=== PATIENT | male | born 1970 | race Caucasian/White ===

== ENCOUNTER 2020-12-18 11:15 | Day surgery (SDC) | payer MEDICAID ==
[2020-12-17 10:30] LABS: COVID AG,FIA SOURCE NASAL SWAB
[~2020-12-18 11:15] MED LIST: ATOR10TA69 PO; BACITRACIN 50,000 UNITS/VIAL ONE; BUPIVACAINE HCL/PF 0.25% 30 ML VIAL ONE; CefTRIAXone SODIUM 2 GM in DEXTROSE 5%-WATER 50 ML IV ONE; LISI10TA24 PO; RINGERS SOLUTION,LACTATED 1,000 ML IV ONE
[2020-12-18] MEDS ORDERED: ROCURONIUM BROMIDE 10 MG/ML 5 ML VIAL IVP ONE (12:00)
[2020-12-18] MEDS ORDERED: FentaNYL CITRATE PF 100 MCG/2 ML VIAL IVP ONE (12:00)
[2020-12-18] MEDS ORDERED: LIDOCAINE/PF 2% 5 ML SYRINGE IVP ONE (12:00)
[2020-12-18] MEDS ORDERED: PROPOFOL 1% 20 ML VIAL IVP ONE (12:00)
[2020-12-18] MEDS ORDERED: DEXAMETHASONE SOD PHOS 4 MG/ML VIAL IVP ONE (12:00)
[2020-12-18] MEDS ORDERED: MIDAZOLAM HCL 2 MG/2 ML VIAL IVP ONE (12:00)
[2020-12-18] MEDS ORDERED: SODIUM CHLORIDE 0.9% 10 ML ONE (12:03)
[2020-12-18] MEDS ORDERED: SUGAMMADEX SODIUM 200 MG/2 ML VIAL IVP ONE (12:14)
[2020-12-18] MEDS ORDERED: ACETAMINOPHEN 1000 MG/ISO-OSM 100 ML IV ONE (12:15)
[2020-12-18] MEDS ORDERED: FentaNYL CITRATE PF 100 MCG/2 ML VIAL IVP PRN (12:45)
[2020-12-18] MEDS ORDERED: HYDROmorphone 2 MG/ML VIAL IVP PRN ×2 (12:45→14:15)
[2020-12-18] MEDS ORDERED: HYDR-4723 PO (14:46)
[2020-12-18] MEDS ORDERED: OXYGEN THERAPY IH SCH (20:00)
== END 2020-12-18 16:10 | disposition home or self-care (01) ==
LOC: SURGERY 11:15
PROVIDERS: ATTEND Surgery
DX: K42.9 Umbilical hernia without obstruction or gangrene (principal); I10 Essential (primary) hypertension; Z88.0 Allergy status to penicillin; Z98.890 Other specified postprocedural states; E78.00 Pure hypercholesterolemia, unspecified; Z79.899 Other long term (current) drug therapy
CPT/HCPCS: 49585; 87426; 88302; 93005; A9575; C1781; C9803; J0131; J0690; J0696; J1100; J2250; J2704; J3010; J3490 ×4; J7060; J7120; Q9967